=== PATIENT | female | born 1950 | race Caucasian/White ===

== ENCOUNTER 2016-11-22 10:47 | Emergency (ER) | payer MEDICARE, OTHER ==
[~2016-11-22] VITALS: Ht 165.1 cm; Wt 68.0 kg
[2016-11-22 10:50] VITALS: BP 142/85
[2016-11-22] MEDS ORDERED: ACETAMINOPHEN 325 MG TABLET ONE (11:53)
[2016-11-22] MEDS ORDERED: ACETAMINOPHEN 325 MG TABLET PO ONE (12:00)
[2016-11-26] MEDS ORDERED: MEROPENEM 1 G VIAL IV ONE (04:51)
== END 2016-11-22 12:01 | disposition home or self-care (01) ==
LOC: ER 10:49
DX: S93.492A Sprain of other ligament of left ankle, initial encounter (principal); J45.909 Unspecified asthma, uncomplicated; V30 Occupant of three-wheeled motor vehicle injured in collision with pedestrian or animal; Y93.89 Activity, other specified; Y92.488 Other paved roadways as the place of occurrence of the external cause; Y99.8 Other external cause status
CPT/HCPCS: 73610 ×2; 99284; A4606 ×2; Z7610